=== PATIENT | male | born 1955 | race Caucasian/White ===

== ENCOUNTER 2024-03-28 20:34 | Emergency (ER) | payer MEDICARE ==
[~2024-03-28] VITALS: Ht 185.4 cm; Wt 124.7 kg
[2024-03-28 22:02] LABS: INTERNATIONAL NORMALIZED RATIO 9.3 RATIO (0.7-1.3)
[2024-03-28] MEDS ORDERED: PHYTONADIONE 5 MG/TAB PO ONE (22:10)
[2024-03-28 22:55] VITALS: BP 146/87
== END 2024-03-28 22:55 | disposition home or self-care (01) ==
LOC: ED 20:34
PROVIDERS: Family Medicine
DX: S01.512A Laceration without foreign body of oral cavity, initial encounter (principal); R79.1 Abnormal coagulation profile; T45.515A Adverse effect of anticoagulants, initial encounter; I10 Essential (primary) hypertension; I48.91 Unspecified atrial fibrillation; K21.9 Gastro-esophageal reflux disease without esophagitis; C82.90 Follicular lymphoma, unspecified, unspecified site; X58.XXXA Exposure to other specified factors, initial encounter; Z79.01 Long term (current) use of anticoagulants; Z85.46 Personal history of malignant neoplasm of prostate